=== PATIENT | female | born 2000 | race Caucasian/White ===

== ENCOUNTER 2021-07-09 13:25 | Emergency (ER) | payer BC, SELFPAY ==
--- NOTE | ~2021-07-09 | XR_ITS ---
EXAMINATION: XR ankle RT min 3V DATE: 07/09/2021 14:18 INDICATION: Right ankle injury and pain. TECHNIQUE: 4 views of right ankle were obtained. COMPARISON: None. FINDINGS: Bone alignment is normal. No fracture. Joint spaces are well maintained. There is ankle sof t tissue swelling. IMPRESSION: 1. No fracture. Reviewed, dictated and finalized at location A. DING SERVICES ENGINEER IMPRESSION: 1. No fracture.
--- NOTE | ~2021-07-09 | XR_ITS ---
EXAMINATION: XR foot RT min 3V DATE: 07/09/2021 14:18 INDICATION: Right foot injury and pain. TECHNIQUE: 4 views of right foot were obtained. COMPARISON: None. FINDINGS: Bone alignment is normal. No fracture. Joint spaces are well maintained. IMPRESSION: 1. No fracture. Reviewed, dictated and finalized at location A. SHOP ESTIMATOR IMPRESSION: 1. No fracture.
--- NOTE | 2021-07-09 13:37 | ED.LOWEXIN ---
HPI - Extremity Injury (Lower) General Chief Complaint: Extremity Injury, Lower Stated Complaint: Fell Injury/ Right Ankle Time Seen by Provider: 07/09/21 14:00 Source: patient, RN notes reviewed and old records reviewed Mode of arrival: ambulatory Limitations: no limitations History of Present Illness HPI Narrative: 21-year-old female accompanied by spouse presents to [facility] with complaints of injury to her right foot and lateral ankle which occurred last night with ground-level fall. Patient reports that as she fell she twisted her ankle and felt a pop to her ankle area. Patient reports that pain is acute and can't apply weight to her right foot.Patient has been taking Ibuprofen and elevating and icing her right foot and ankle with no resolution of her symptoms. MD complaint: ankle injury (lateral), foot injury (right lateral) and fall Review of Systems Review of Systems: CONSTITUTIONAL: Denies fever, chills, or sweats. EYES: Denies visual changes, redness, or discharge. ENT: Denies rhinorrhea, congestion, sore throat, or otalgia. CARDIOVASCULAR: Denies chest pain, palpitations, or edema. RESPIRATORY: Denies cough or dyspnea. GASTROINTESTINAL: Denies abdominal pain, nausea, vomiting, or diarrhea. GENITOURINARY: Denies dysuria or hematuria. SKIN: Denies rash or itching. MUSCULOSKELETAL: Denies back pain,positive for right lateral foot and ankle joint pain, or myalgia. NEUROLOGIC: Denies headache, numbness, or weakness. PSYCHIATRIC: Denies anxiety or depression. All systems reviewed & are unremarkable except as noted in HPI and below PMFSH Past Medical History Medical History (Updated 07/09/21 @ 14:41 by Azul Ochoa NP) COVID-19 1.5 months ago Surgical History Surgical History (Updated 07/09/21 @ 14:08 by Azul Ochoa NP) H/O removal of cyst behind ear Family History Family History (Updated 07/09/21 @ 14:09 by Azul Ochoa NP) Grandparent Diabetes mellitus Hypertension Breast cancer Father Hypertension Social History Social History (Updated 07/09/21 @ 14:09 by Azul Ochoa NP) Smoking status: Never smoker Alcohol intake: never Substance use: never Living arrangements: with family Gender identity (if verbalized by the patient): Female Comments At time of signature, agree with nursing past medical, surgical, social and family history. There is no relevant family history pertinent to the presenting complaint Exam Narrative: GENERAL: Well-appearing, well-nourished, and in no acute distress. HEAD: Normocephalic, atraumatic. EYES: PERRLA and EOMI. ENT: Nares clear, no rhinorrhea or epistaxis. Mucous membranes moist. NECK: Supple.no lymphadenopathy CHEST: Clear to auscultation. No respiratory distress. HEART: Regular rate and rhythm. No murmur heard. Normal peripheral pulses. ABDOMEN: Soft, nontender, nondistended, normal active bowel sounds. EXTREMITIES: Normal range of motion. mild edema to lateral right ankle and right lateral foot with some bruising noted. strong pulses to right foot, Patient able to flex and extend right foot but with pain, no tingling or numbness to right foot stated, increase pain with any attempt at weight bearing. SKIN: Warm, dry, no rash. NEURO: No focal deficits. Alert and oriented x3. Course Course Level of Care: Express Care Visit Vital Signs Vital signs: Vital Signs Temperature 37.3 C 07/09/21 13:40 Pulse Rate 117 H 07/09/21 13:40 Respiratory Rate 18 07/09/21 13:40 Blood Pressure 145/77 H 07/09/21 13:40 Pulse Oximetry 97 07/09/21 13:40 Temperature 37.3 C 07/09/21 13:40 Pulse Rate 117 H 07/09/21 13:40 Respiratory Rate 18 07/09/21 13:40 Blood Pressure 145/77 H 07/09/21 13:40 Pulse Oximetry 97 07/09/21 13:40 MDM - Extremity Injury (Lower) Differential Diagnosis Differential diagnosis: Likely ankle sprain and strain, ankle fracture and other (foot fracture, pain to right lateral foot, pain lateral rig
[2021-07-09 13:40] VITALS: BP 145/77; PULSE 117; RESP 18; TEMP 37.3; O2SAT 97
== END 2021-07-09 15:10 | disposition home or self-care (01) ==
PROVIDERS: Emergency Provider Registered Nurse
DX: S93.401A Sprain of unspecified ligament of right ankle, initial encounter (principal); S96.911A Strain of unspecified muscle and tendon at ankle and foot level, right foot, initial encounter; W19.XXXA Unspecified fall, initial encounter; M79.671 Pain in right foot; Z86.16 Personal history of COVID-19
CPT/HCPCS: 73610; 73630; 99213; G0463